=== PATIENT | female | born 1985 | race Caucasian/White ===

== ENCOUNTER → 2020-02-03 14:21 | Outpatient (CLI) | payer BC, SELFPAY ==
--- NOTE | ~2020-02-03 | US_ITS ---
EXAMINATION: US pelvic complete w TV DATE: 02/03/2020 14:47 INDICATION: Subacute and chronic vaginitis Comparison:No prior studies for comparison. TECHNIQUE: Multiple transabdominal and endovaginal sonographic images of the pelvis performed. FINDINGS: The uterus measures 11.4 x 4.9 x 7.2 cm. The endometrial complex measures 11 mm. The right ovary measures 2.9 x 2.1 x 1.8 cm and the left ovary measures 4.2 x 2.4 x 3.7 cm. There is a 2.3 cm left ovarian cyst. There is trace of free fluid in the pelvis. There are no abnormal masses seen on either side. IMPRESSION: 1. Left ovarian cyst measuring 3 mm. 2: Mild diffuse uterine enlargement. Reviewed, dictated and finalized at location A. S TECHNOLOGIST
== END ==
PROVIDERS: Visit Provider Obstetrics & Gynecology
DX: N76.1 Subacute and chronic vaginitis (principal)
CPT/HCPCS: 76830; 76856